=== PATIENT | male | born 1985 | race Caucasian/White ===

== ENCOUNTER 2020-09-12 06:54 | Outpatient (NON) | payer OTHER, SELFPAY ==
[2020-09-12 21:41] LABS: SARS-CoV-2 RNA PCR Positive
== END 2020-09-12 06:55 ==
LOC: ANHCOVIDDT 07:00
PROVIDERS: Family Provider Family Medicine Adolescent Medicine; PCP Family Medicine Adolescent Medicine; Visit Provider Physician Assistant
DX: U07.1 COVID-19 (principal)
CPT/HCPCS: C9803; U0003; U0005

== ENCOUNTER 2020-09-19 10:15 | Emergency (ER) | payer OTHER, SELFPAY ==
[2020-09-19] VITALS (7 sets, daily range): BP systolic 114–136; BP diastolic 74–82; PULSE 80–93; RESP 15–25; TEMP 35.7; O2SAT 93–97
--- NOTE | ~2020-09-19 | CT_ITS ---
EXAMINATION: CTA chest PE protocol DATE: 09/19/2020 13:24 INDICATION: Shortness of breath for 2 days. Covid-positive. TECHNIQUE: Computed tomography angiography (CTA) of the chest was performed with 100 mL Omnipaque-350 intravenous contrast timed to evaluate the pulmonary arteries. Coronal maximum intensity projection 3D-reconstructions were created by the technologist. Automated exposure control and iterative reconst ruction technique were employed. Exam dose: 840.35 mGy-cm total exam DLP. COMPARISON: September 19, 2020 portable AP chest at 1039 hours FINDINGS: There is diagnostic contrast enhancement of the pulmonary arteries and no evidence of pulmo nary embolism. There are patchy relatively groundglass infiltrates scattered throughout the upper and lower lobes an d to a mild extent the middle lobe, with peripheral predominance. Mild hilar and mediastinal lymph node prominence is likely reactive. No thoracic aortic aneurysm or dissection is evident. Heart size appears within normal limits. There is no pericardial or pleural effusion. Diffuse hepatic steatosis. Normal morphology of the adrenal glands. IMPRESSION: Bilateral pulmonary infiltrates, likely secondary to pneumonia No evidence of pulmonary embolism Reviewed, dictated and finalized at [facility]. Reviewed, dictated and finalized at [facility]. [facility] [employer]
--- NOTE | ~2020-09-19 | XR_ITS ---
EXAMINATION: XR chest 1V portable EXAM DATE: 09/19/2020 10:45 INDICATION: Cough, shortness of breath. COVID 19 positive. TECHNIQUE: Portable AP frontal chest x-ray was obtained. There is no prior study for comparison. FINDINGS: Suspect small amount of ill-defined left basilar airspace disease, possible small amount of COVID pneumonia. No definite right-sided airspace disease. There is no pneumothorax suspected. There are no pleural effusions. Cardiomediastinal silhouette is normal. IMPRESSION: Probable small amount of left basilar pneumonia. Reviewed, dictated and finalized at [facility]. [employer] TECHNICIAN
--- NOTE | 2020-09-19 10:23 | ECG_ITS ---
Measurements Intervals [place] Rate: 85 P: 55 VT: 140 QRS: -12 QRSD: 85 T: 43 QT: 379 QTc: 452 Interpretive Statements SINUS RHYTHM DELAYED PRECORDIAL R/S TRANSITION BASELINE WANDER- III, V2-V6 BORDERLINE ECG Electronically Signed On 09-19-2020 10:30:22 [employer]IA[employer] by John Rivera D.O.
[2020-09-19 10:38] LABS: Hematocrit 41.7 % (42.0-52.0); Hemoglobin 14.4 g/dL (14.0-18.0); Mean Corpuscular HGB Conc 34.5 g/dl (32-36); Mean Corpuscular Hemoglobin 30.4 pg (26-34); Mean Corpuscular Volume 88.2 fl (80-100); Mean Platelet Volume 10.3 fl (7.4-10.4); Platelet Count Result 154 k/mm3 (150-375); Red Blood Count 4.73 M/mm3 (4.6-6.20); Red Cell Distribution Width 11.5 % (11.5-14.5); White Blood Count 5.8 K/mm3 (4.5-10.0)
[2020-09-19 10:50] LABS: Alanine Aminotransferase 71 U/L (4-50); Albumin Level 4.2 g/dL (3.5-5.1); Alkaline Phosphatase 47 U/L (38-126); Anion Gap 7 mmol/L (8-16); Aspartate Amino Transferase 76 U/L (17-59); Bilirubin,Total 0.6 mg/dL (0.2-1.3); Blood Urea Nitrogen 13 mg/dL (9-20); Calcium 8.2 mg/dL (8.4-10.2); Carbon Dioxide 32 mmol/L (22-30); Chloride 97 mmol/L (98-107); Estimated CRCL calculation 146 ml/min; Estimated Glomerular Filt Rate > 60; Glucose 108 mg/dL (75-110); Potassium 3.6 mmol/L (3.4-5.0); Sodium 136 mmol/L (137-145)
[2020-09-19 11:06] LABS: Alveolar/Arterial O2 Gradient 41.1 mmHg; Base Excess ABG -0.4 mEq/l (+/-2.0); Device ROOM AIR; Fractional Inspired Oxygen 21 %; HCO3 ABG 23.7 mEq/l (22.0-26.0); Modified Allen's Test Pass; Oxygen Content ABG 18.6 %vol (16.0-22.0); Oxyhemoglobin 91.8 % THb (90.0-100.0); PCO2 ABG 37.2 mmHg (35.0-45.0); PO2 ABG 64.1 mmHg (80.0-100.0); PO2 FiO2 Ratio Arterial Blood 3.05 %; Site Drawn LEFT RADIAL; Total Hemoglobin 14.4 g/dL (12.0-18.0); pH ABG 7.422 (7.350-7.450)
[2020-09-19 11:18] LABS: Atypical Lymphocytes Present; Lymphocytes Absolute Manual 0.98 K/mm3 (1.1-4.5); Macrocytosis 1+ (NORMAL); Monocytes Absolute Manual 0.58 K/mm3 (0.1-0.90); Monocytes Percent Manual 10 % (3-9); Neutrophils Percent Manual 73 % (46-73); Platelet Estimate Adequate (Adequate); Total Cells Counted 100
[2020-09-19 11:19] LABS: Tear Drop Cells 2+ (NORMAL)
--- NOTE | 2020-09-19 11:25 | ED.SOB ---
HPI - SOB/Dyspnea General Chief Complaint: Shortness of Breath/Dyspnea Stated Complaint: COVID Positive, Difficulty Breathing Time Seen by Provider: 09/19/20 10:44 Source: patient Mode of arrival: ambulatory Limitations: no limitations History of Present Illness HPI Narrative: Patient is 34 years old white male presents with shortness of breath in the last few days. Patient was tested positive for COVID-19 1 week ago, had Covid symptoms 2 to 3 days of prior to that in the form of body aches, fever, chills, general body aches. Patient's was tested positive for Covid few days earlier than the patient. Patient on no medications, does not smoke. Related Data Allergies Allergy/AdvReac Type Severity Reaction Status Date / Time No Known Allergies Allergy Unverified 06/12/15 22:39 [facility] Social History Social History Gender identity (if verbalized by the patient): Male Course Vital Signs Vital signs: Vital Signs Temperature 35.7 C L 09/19/20 10:23 Pulse Rate 85 09/19/20 10:23 Respiratory Rate 15 09/19/20 10:23 Blood Pressure 124/82 09/19/20 10:23 Pulse Oximetry 97 09/19/20 10:23 Temperature 35.7 C L 09/19/20 10:23 Pulse Rate 82 09/19/20 13:37 Respiratory Rate 17 09/19/20 13:37 Blood Pressure 136/80 09/19/20 13:37 Pulse Oximetry 94 09/19/20 13:37 MDM - SOB/Dyspnea Lab Data Result diagrams: 09/19/20 10:29 09/19/20 10:32 Labs: Lab Results 09/19/20 09/19/20 09/19/20 Range/Units 10:29 10:29 10:32 WBC 5.8 (4.5-10.0) K/mm3 RBC 4.73 (4.6-6.20) M/mm3 Hgb 14.4 (14.0-18.0) g/dL Hct 41.7 L (42.0-52.0) % MCV 88.2 (80-100) fl MCH 30.4 (26-34) pg MCHC 34.5 (32-36) g/dl RDW 11.5 (11.5-14.5) % Plt Count 154 (150-375) k/mm3 MPV 10.3 (7.4-10.4) fl Immature Gran % (Auto) Not Reportable Neut % (Auto) Not Reportable Lymph % (Auto) Not Reportable [place] % (Auto) Not Reportable Eos % (Auto) Not Reportable Baso % (Auto) Not Reportable Lymph # (Auto) Not Reportable [place] # (Auto) Not Reportable Eos # (Auto) Not Reportable Baso # (Auto) Not Reportable Abs Immat Gran (auto) Not Reportable Absolute Neuts (auto) Not Reportable Absolute Nucleated RBC Not Reportable Total Counted 100 Neutrophils % (Manual) 73 (46-73) % Lymphocytes % (Manual) 17.0 L (18-44) % Monocytes % (Manual) 10 H (3-9) % Nucleated RBC % Not Reportable Abs Lymphs (Manual) 0.98 L (1.1-4.5) K/mm3 Abs Monocytes (Manual) 0.58 (0.1-0.90) K/mm3 Atypical Lymphocytes Present Platelet Estimate Adequate (Adequate) Macrocytosis 1+ (NORMAL) Tear Drop Cells 2+ (NORMAL) D-Dimer 1.45 H (<0.48) ug/mL Sodium 136 L (137-145) mmol/L Potassium 3.6 (3.4-5.0) mmol/L Chloride 97 L (98-107) mmol/L Carbon Dioxide 32 H (22-30) mmol/L Anion Gap 7 L (8-16) mmol/L BUN 13 (9-20) mg/dL Creatinine 1.00 (0.7-1.3) mg/dL Estim Creat Clear Calc 146 ml/min Estimated GFR > 60 (59 - ) Glucose 108 (75-110) mg/dL Calcium 8.2 L (8.4-10.2) mg/dL Total Bilirubin 0.6 (0.2-1.3) mg/dL AST 76 H (17-59) U/L ALT 71 H (4-50) U/L Alkaline Phosphatase 47 (38-126) U/L Total Protein 8.0 (6.3-8.2) g/dL Albumin 4.2 (3.5-5.1) g/dL ABG Data ABG results: 09/19/20 10:59 Puncture Site Left radial ABG pH 7.422 ABG pCO2 37.2 ABG pO2 64.1 L ABG PO2/FiO2 Ratio 3.05 ABG HCO3 23.7 ABG O2 Saturation 93.0 L ABG O2 Content 18.6 ABG Base Excess -0.4 A-a Gradient 41.1 Oxyhemoglobin 91.8 Total Hemoglobin 14.4 O2 Delivery Device Room air O2 Liters/Min Not Reportable FiO2 21 Imaging Data Radiologist's impression: Impressions Chest X-Ray 09/19/20 10:46 IMPRESSION: Probable small amount of left basilar pneumonia. Chest CTA 09/19/20 13:29 IMPRESSION: Bi
[2020-09-19] MEDS: predniSONE 20 MG TABLET 40 MG PO (11:40)
[2020-09-19 12:29] LABS: D Dimer 1.45 ug/mL (<0.48)
== END 2020-09-19 14:15 | disposition home or self-care (01) ==
PROVIDERS: Emergency Provider Emergency Medicine; PCP Family Medicine Adolescent Medicine
DX: U07.1 COVID-19 (principal)
CPT/HCPCS: 36415; 36600; 71045; 71275; 80053; 82805; 85025; 85380; 93005; 99284; J7512; Q9967